=== PATIENT | male | born 1985 ===

== ENCOUNTER 2017-10-24 14:42 | Emergency (ER) | payer SELFPAY ==
[~2017-10-24] VITALS: Ht 175.3 cm; Wt 93.0 kg
[2017-10-24] MEDS ORDERED: MORPHINE 4 MG/ML SYR IVP ONE ×2 (14:55→15:35)
[2017-10-24] MEDS ORDERED: ONDANSETRON 4 MG/2 ML VIAL IVP ONE (14:55)
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
[2017-10-24] MEDS ORDERED: HYDR-4309 PO (16:11)
[2017-10-24 16:19] VITALS: BP 157/119
[2017-10-24] MEDS ORDERED: ORPHENADRINE 60MG/2ML INJ IVP ONE (16:25)
[2017-10-25] MEDS ORDERED: OXYC-865 PO (13:57)
== END 2017-10-24 16:45 | disposition home or self-care (01) ==
LOC: ER 14:47
DX: S49.92XA Unspecified injury of left shoulder and upper arm, initial encounter (principal)
CPT/HCPCS: 73030; 96374; 96375; 96376; 99284; A4565; J2270; J2360; J2405

== ENCOUNTER 2017-10-25 13:19 | Emergency (ER) | payer SELFPAY ==
[~2017-10-25] VITALS: Ht 175.3 cm; Wt 93.0 kg
[~2017-10-25 13:19] MED LIST: HYDR-4309 PO
[2017-10-25 13:30] VITALS: BP 154/103
[2017-10-25] MEDS ORDERED: OXYC-865 PO (13:57)
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
== END 2017-10-25 14:08 | disposition home or self-care (01) ==
LOC: ER 13:26
DX: M25.512 Pain in left shoulder (principal)
CPT/HCPCS: 99282